=== PATIENT | female | born 1975 | race Two or more races ===

== ENCOUNTER 2024-07-03 12:32 | Outpatient (REF) | payer MEDICAID, SELFPAY ==
--- NOTE | ~2024-07-03 | XR_ITS ---
EXAMINATION: XR CHEST CLINICAL INFORMATION: Chronic shortness of breath COMPARISON: None available. TECHNIQUE: 2 views of the chest were obtained. FINDINGS: The lungs are well expanded. There is no focal consolidation, interstitial pulmonary edema or pneumothorax. Mild peribronchial thickening is noted. There is moderate enlargement of the cardiac silhouette. There are no pleural effusions. There is no acute osseous abnormality. XR/XR chest 2V IMPRESSION: 1. No pneumonia. 2. Moderate enlargement of the cardiac silhouette.
== END 2024-07-03 12:33 | disposition home or self-care (01) ==
LOC: HO.HHCX 12:32
PROVIDERS: Visit Provider Family Medicine
DX: R06.09 Other forms of dyspnea (principal)
CPT/HCPCS: 71046